=== PATIENT | female | born 1950 | race Caucasian/White ===

== ENCOUNTER → 2018-01-30 | Outpatient (CLI) | payer MEDICARE, BC ==
[~2018-01-30] MED LIST: ACYCLOVIR 800800 MG PO; BONIVA150 MG PO; KLONOPIN0.5 MG PO; LISINOPRIL20 MG PO; MAGOX 400400 MG PO; PAXIL10 MG PO; POTASSIUM20 PO; SERTRALINE HCL50 MG PO; SULFATRIM PEDI480 ML PO; ZESTORETIC 20-1 EAC3 PO
== END ==
LOC: M.RAD 01-23 13:30
DX: M81.0 Age-related osteoporosis without current pathological fracture (principal); Z78.0 Asymptomatic menopausal state

== ENCOUNTER 2018-07-31 08:55 | Observation (INO) | payer MEDICARE, BC ==
[~2018-07-31] VITALS: Ht 152.4 cm; Wt 58.5 kg
[2018-07-31 09:09] VITALS: BP 128/86
[2018-07-31 09:23] LABS: HEMATOCRIT 36.5 % (37.0-47.0); HEMOGLOBIN 12.8 gm/dL (12.0-15.0); MCH 35.8 pg (26.0-34.0); MCHC 35.2 g/dL (28.0-37.0); MCV 101.8 fL (80.0-100.0); NUCLEATED RBCS 0 /100WBC; PLATELET COUNT* 158 thou/uL (150-400); RBC 3.59 mil/uL (4.20-5.00); RDW-CV 15.4 % (10.5-14.5); WBC 7.3 thou/uL (4.0-11.0)
[2018-07-31 09:32] LABS: ANION GAP 14 mmol/L (7-16); APTT 27.5 Seconds (25.0-31.3); BUN 12 mg/dL (7-18); CALCIUM 8.7 mg/dL (8.5-10.1); CHLORIDE 87 mmol/L (98-107); CO2 27 mmol/L (21-32); GLUCOSE 129 mg/dL (70-99); PROTIME 10.2 Seconds (9.20-11.50); SODIUM 128 mmol/L (136-145)
[2018-07-31 09:35] LABS: POTASSIUM 2.5 mmol/L (3.5-5.1)
[2018-07-31 09:38] LABS: ALKALINE PHOSPHATASE 76 U/L (46-116); LIPASE 126 U/L (73-393); SGOT 62 U/L (15-37); SGPT 35 U/L (30-65); TOTAL BILIRUBIN 1.3 mg/dL (<0.1-1.0); TOTAL PROTEIN 6.6 g/dL (6.4-8.2); TROPONIN-I LEVEL <0.06 ng/mL (<0.06)
[2018-07-31 09:53] LABS: ABSOLUTE LYMPHOCYTES 0.5 thou/uL (0.8-5.3); ABSOLUTE MONOCYTES 0.4 thou/uL (0.0-1.2); ABSOLUTE NEUTROPHILS 6.4 thou/uL (1.6-8.1); PLATELET ESTIMATE ADEQUATE
[2018-07-31 11:00] LABS: URINE BILIRUBIN NEGATIVE (Negative); URINE BLOOD NEGATIVE (Negative); URINE CLARITY CLEAR; URINE COLOR YELLOW; URINE GLUCOSE-RANDOM NEGATIVE (Negative); URINE KETONES 1+ (Negative); URINE LEUKOCYTES-REFLEX 1+ (Negative); URINE NITRITE-REFLEX NEGATIVE (Negative); URINE PROTEIN NEGATIVE (Negative); URINE SPECIFIC GRAVITY <= 1.005 (1.005-1.030); URINE UROBILINOGEN 0.2 E.U./dl (0.2-1.0)
[2018-07-31 11:14] LABS: BACTERIA-REFLEX None Seen /HPF (None Seen); CASTS None Seen /LPF (None Seen); CRYSTALS None Seen /LPF (None Seen); MUCUS None Seen strn/LPF (None Seen); SQUAMOUS 0-3 Few /LPF (0-3); URINE RBC 0-2 Rare /HPF (0-2); URINE WBC-REFLEX 0-5 Rare /HPF (0-5)
[2018-07-31 11:57] VITALS: BP 130/82
[2018-07-31 12:03] VITALS: BP 131/91
--- NOTE | 2018-07-31 12:30 | NUR ---
PT. ARRIVED TO UNIT AT APPROX. 1155. PT. IS A/OX4, VSS, MONITOR PLACED TRACING ST. PT. DOES APPEAR ANXIOUS, SLIGHTLY FRAGILE WHILE TALKING. STATES SHE HAS BEEN NAUSEATED AND VOMITING X 10 DAYS, WITH SUBSEQUENT SORE THROAT. REPORTS ONE EPISODE OF DIARRHEA 2 DAYS AGO. FULL ASSESSMENT AND ADMISSION PROCESS COMPLETED, REFER TO CHARTING. PT. SPOUSE AT BEDSIDE. PT. REPORTS SIGNIFICANT HISTORY OF DEPRESSION AND ANXIETY, WITH ATTEMPTS TO TRY MULTIPLE MEDICATIONS WITH NO RELIEF. PT. ASSIST TO AMBULATE, UNSTEADY ON FEET, STATES SHE IS NOT STEADY AT HOME EITHER BUT DOES NOT USE WALKER OR HAD RECENT FALL. PT. AND SPOUSE INFORMED OF FALL PRECAUTIONS. CALL LIGHT IN REACH, WILL CONTINUE WITH PLAN OF CARE.
--- NOTE | 2018-07-31 15:31 | EKG ---
[place] [address] ELECTROCARDIOGRAM REPORT Name: GERHARDEDENILSON Z Room: [address] ADM IN M.R.#: [id number] Admission: 07/31/18 Attend Phys: Leif Roy MD Discharge: Date of : 46 Report #: [id number] THIS REPORT FOR: //name// [facility] ED Test Date: 2018-07-31 Test Time: 09:18:59 Pat Name: EDENILSON HENNESSY Department: Room: [facility] Gender: F Faculty Member: Te AGUILAR : 1950 Requested By: Rao Sepulveda Order Number: [id number] MD: Donnie Monson Measurements Intervals [place] Rate: 117 P: 65 VT: 149 QRS: 25 QRSD: 101 T: 5 QT: 329 QTc: 459 Interpretive Statements Sinus tachycardia Supraventricular bigeminy Compared to ECG 03/10/2016 12:48:40 Atrial premature complex(es) now present Sinus rhythm no longer present Electronically Signed On 07-31-2018 15:31:18 CDT by Donnie Monson [email or web address] <ELECTRONICALLY SIGNED> By: Donnie Monson MD, FACC 07/31/18 1531 7 7 Donnie Monson MD, FAC /EPI
[2018-07-31 16:00] VITALS: BP 125/74
[2018-07-31 16:09] LABS: POTASSIUM 3.3 mmol/L (3.5-5.1)
[2018-07-31 17:27] VITALS: BP 101/55
--- NOTE | 2018-07-31 19:35 | NUR ---
PT. STABLE THROUGH OUT SHIFT. DOES NOT LIKE HAVING TO ASK FOR ASSISTANCE AND STATES MULTIPLE TIMES SHE WANTS TO DC IN THE MORNING. PT. TOLERATED FOOD AT LUNCH AND DINNER, DID NOT EAT WHOLE MEALS BUT DID HAVE SOME MODERATE INTAKE. TOLERATING WATER AND 7-UP WITHOUT NAUSEA/VOMITING. HOURLY ROUNDING COMPLETED THROUGH OUT THE DAY FOR PT. SAFETY.
[2018-08-01 00:55] VITALS: BP 136/89
--- NOTE | 2018-08-01 04:34 | NUR ---
PT AAOX4 RESP REG AND UNLABORED SKIN W/D NO ACUTE DISTRESS NOTED. RECEIVING INSPECTOR INTACT WITH [facility]. PTS GAIT IS VERY UNSTEADY. PT STATES SHE WANTS TO GO HOME TODAY THAT SHEIS MUCH BETTER. PT IS VERY ANXIOUS AT TIMES. VSS AND NO ACUTE CHANGES DURIGN SHIFT WILL CONTINUE OT MONITOR
[2018-08-01 04:48] VITALS: BP 121/74
[2018-08-01 05:28] LABS: ABSOLUTE LYMPHOCYTES 0.6 thou/uL (0.8-5.3); ABSOLUTE MONOCYTES 0.3 thou/uL (0.0-1.2); ABSOLUTE NEUTROPHILS 2.7 thou/uL (1.6-8.1); BASOPHILS 0.5 %; EOSINOPHILS 0.9 %; HEMATOCRIT 29.3 % (37.0-47.0); LYMPHOCYTES 16.2 %; MCH 36.2 pg (26.0-34.0); MCHC 34.7 g/dL (28.0-37.0); MCV 104.4 fL (80.0-100.0); MONOCYTES 8.4 %; MPV 7.8 fl. (7.2-11.1); NUCLEATED RBCS 0 /100WBC; PLATELET COUNT* 103 thou/uL (150-400); RDW-CV 16.2 % (10.5-14.5); WBC 3.6 thou/uL (4.0-11.0)
[2018-08-01 05:38] LABS: HEMOGLOBIN 10.1 gm/dL (12.0-15.0)
[2018-08-01 05:47] LABS: CALCIUM 7.2 mg/dL (8.5-10.1); CREATININE 0.7 mg/dL (0.6-1.3); POTASSIUM 3.9 mmol/L (3.5-5.1)
--- NOTE | 2018-08-01 08:21 | NUR ---
ASSUMED PT. CARE AND RECEIVED REPORT AT 0730. PT A/OX4, VSS, MONITOR ON TRACING SR. PT ON RA @ 100%. DENIES CURRENT PAIN/SOB. STATES THROAT IS FEELING BETTER AND SHE IS NOT NAUSEATED TODAY. FULL ASSESSMENT COMPLETED, REFER TO CHARTING. MAGNESIUM BEING REPLACED THIS MORNING. PT. ANXISOU TO BE ABLE TO DC HOME. FALL PRECAUTIONS IN PLACE, CALL LIGHT IN REACH, WILL CONTINUE WITH PLAN OF CARE.
[2018-08-01 08:23] VITALS: BP 125/95
[2018-08-01 11:16] VITALS: BP 118/76
--- NOTE | 2018-08-01 11:22 | NUR ---
MET WITH PT AND SON TO DISCUSS HOME SITUATION/DC PLANNING. PT LIVES WITH SPOUSE, IS INDEPENDENT AND ACTIVE AND DENIES DC NEEDS. WANTS TO GO HOME. ORDER NOTED
[2018-08-01 11:29] VITALS: BP 125/95
--- NOTE | 2018-08-01 12:08 | NUR ---
DC ORDERS RECEIEVED. IV AND MONITOR REMOVED. PT AND SPOUSE GIVEN DC INSTRUCTIONS, VERBALIZED UNDERSTANDING. PT. LEFT VIA WHEELCHAIR TO RETURN HOME IN PERSONAL VEHICLE, ALL BELONGINGS ACCOUNTED FOR.
== END 2018-08-01 12:00 | disposition home or self-care (01) ==
LOC: M.ERS 08:55 → M.2W 10:50 → M.TBA-ER 10:50 → M.2W 11:50
PROVIDERS: Family Medicine; ADMIT Internal Medicine
DX: E86.0 Dehydration (principal); E87.6 Hypokalemia; E87.1 Hypo-osmolality and hyponatremia; F32.9 Major depressive disorder, single episode, unspecified; F41.9 Anxiety disorder, unspecified; Z92.21 Personal history of antineoplastic chemotherapy; Z85.72 Personal history of non-Hodgkin lymphomas; Z72.89 Other problems related to lifestyle; Z23 Encounter for immunization